=== PATIENT | female | born 1950 | race Caucasian/White ===

== ENCOUNTER → 2017-10-11 | Outpatient (REF) | payer MEDICARE | LOC: M LAB REF 09:55 | DX: L03.119 Cellulitis of unspecified part of limb (principal) | CPT/HCPCS: 87186 ==

== ENCOUNTER 2018-12-06 08:47 | Day surgery (SDC) | payer MEDICARE ==
[~2018-12-06] VITALS: Ht 152.4 cm; Wt 95.3 kg
[~2018-12-06 08:47] MED LIST: ASPI81TA85 PO; CAND16TA7 PO; D 50CAP PO; GLIM4TAB PO; LR 1,000 ML IV ONE; MECL-86 PO; METF-839 PO; SM E PO; TRIPCAP5 PO; VANCOMYCIN HCL 1,000 MG, VIAL MATE ADAPTER 1 EACH in D5W 250 ML IV ONE; VITA-157 PO
[2018-12-06] MEDS ORDERED: VICT18IN SC (10:14)
[2018-12-06] MEDS ORDERED: BUPIVACAINE HCL 0.5% 30 ML VIAL As Ordered ONE (11:13)
[2018-12-06] MEDS ORDERED: BACITRACIN PWD 50,000 UNITS VIAL As Ordered ONE (11:13)
[2018-12-06] MEDS ORDERED: NEOSPORIN GU IRRIG 20 ML VIAL As Ordered ONE (11:13)
[2018-12-06] MEDS ORDERED: LIDOCAINE 2% MDV 20 ML VIAL As Ordered ONE (11:13)
[2018-12-06] MEDS ORDERED: ONDANSETRON 4MG/2ML VIAL (J2405) As Ordered ONE (12:23)
[2018-12-06] MEDS ORDERED: KETAMINE HCL 200 MG/20 ML VIAL As Ordered ONE (12:23)
[2018-12-06] MEDS ORDERED: PROPOFOL 200 MG/20 ML VIAL As Ordered ONE (12:23)
[2018-12-06] MEDS ORDERED: LIDOCAINE 2% INJ 100 MG/5 ML SDV (FOR ANES.) As Ordered ONE (12:23)
[2018-12-06] MEDS ORDERED: MIDAZOLAM INJ 2 MG/2 ML VIAL (J2250) As Ordered ONE (12:23)
[2018-12-06] MEDS ORDERED: GLYCOPYRROLATE INJ 0.2 MG/ML 2 ML VIAL As Ordered ONE (12:23)
[2018-12-06] MEDS: dexameTHASONE 4 MG/ML 1ML VIAL (J1100) As Ordered ONE (12:40)
--- NOTE | 2018-12-06 13:33 | REP ---
RIGHT FOOT SERIES: THREE VIEWS. HISTORY: Postop. Comparison right foot radiographs are from January 14, 2014. FINDINGS: Three views of the right foot taken through overlying cast and dressing material demonstrate a metallic screw in place in the distal end of the 4th metatarsal. There is diffuse osteopenia. Fine bone detail is obscured by overlying cast material. Electronically Signed by Hernan Burns MD 12/06/2018 08:09 P
[2018-12-06 14:15] VITALS: BP 144/62
--- NOTE | 2018-12-08 08:01 | RO ---
DATE OF PROCEDURE: 12/06/2018 PREPROCEDURE DIAGNOSIS: Ulceration plantar surface inferior to the 4th metatarsal right foot and plantar flex elongated 4th metatarsal right foot. POSTPROCEDURE DIAGNOSIS: Ulceration plantar surface inferior to the 4th metatarsal right foot and plantar flex elongated 4th metatarsal right foot. PROCEDURES PERFORMED: 1. Shortening metatarsal osteotomy with internal screw fixation 2.5 mm x 12 mm x 1 headless compression screw right foot. SURGEON: Dr. Meño Jennings DPM SENIOR TAX ANALYST: None. ANESTHESIA: Local monitored anesthesia care (MAC). IRRIGATION: Dilute bacitracin, neomycin and polymyxin B solution. DESCRIPTION OF PROCEDURE: On 12/06/2018, this 68-year-old white female was taken from her hospital room to the operating room, placed on the operating table in the supine position. Following the induction of intravenous (IV) sedation and local and regional anesthesia, the right lower extremity was prepped and draped in the usual aseptic manner. Attention was directed to the dorsal surface of the patient's right foot where a 5 cm linear incision was placed over the 4th metatarsal of the right foot. Dissection was carried in the same plane, and all vital neuromuscular structures were identified. All coursing venous tributaries were clamped, cut, ligated, electrocoagulated as necessary. Dissection was carried down to the extensor tendons, which were retracted in a lateral direction, and a linear capsulotomy was performed in the same plane as the original skin incision. Utilizing a metatarsal elevator, the plantar plate was released. Utilizing a power saw, a Marcus osteotomy was performed, paralleling the plantar surface of the foot, starting at the articular cartilage, and the 4th metatarsal was shortened approximately 5 mm. A snap-off screw was initially attempted to be utilized. However, due to her soft bone, the snap-off screw would not disengage. Therefore, it was elected to be removed and it was replaced with a 2.5 headless compression screw, which provided excellent fixation of her 4th metatarsal osteotomy and it was stable in all three cardinal planes. The redundant dorsal ledge was rongeured off. The wound was flushed with copious amounts of dilute bacitracin, neomycin and polymyxin B solution. Attention was directed towards closure where the capsular structures were coapted and maintained utilizing #2-0 Monocryl in a simple interrupted type fashion. Subcutaneous tissue was coapted and maintained using #4-0 Monocryl in a simple interrupted type fashion. Skin incision was coapted and maintained using #4-0 Prolene in a simple interrupted type fashion. Attention was then directed towards bandaging where a sterile compressive bandage was applied consisting of Adaptic, 4 x 4's, Manohar and Kerlix. A well-molded fiberglass cast was then placed over the patient's extremity from toes to just distal to the knee.. Upon deflation of the tourniquet, instantaneous capillary filling time was noted to digits 1-5 of the patient's right foot. The patient having apparently tolerated the surgical procedure well, was taken from the operating room (OR) to the recovery room for further monitoring by the anesthesia department. Postoperative instructions given upon discharge.
== END 2018-12-06 14:22 | disposition home or self-care (01) ==
LOC: M SDC 08:47
PROVIDERS: ATTEND Podiatrist
DX: L97.509 Non-pressure chronic ulcer of other part of unspecified foot with unspecified severity (principal); E11.42 Type 2 diabetes mellitus with diabetic polyneuropathy; E11.621 Type 2 diabetes mellitus with foot ulcer; M79.671 Pain in right foot; I10 Essential (primary) hypertension; Z88.0 Allergy status to penicillin; Z79.82 Long term (current) use of aspirin; Z79.84 Long term (current) use of oral hypoglycemic drugs; Z79.899 Other long term (current) drug therapy
CPT/HCPCS: 28308; 73630; 88304; 88311; C1776; J1100; J2250; J2405; J3370